=== PATIENT | female | born 1960 | race Caucasian/White ===

== ENCOUNTER → 2017-04-24 | Outpatient (CLI) | payer BC, OTHER ==
[~2017-04-24] MED LIST: ALBU8.5H4 IH; ALPR0.2550 PO; ASP81TEC PO; HCT25T PO; LEVA1.2511 IH; METO-272 PO; METO50TA2 PO; MOME13HF2 IH; MTF500T PO; OXYC-197 PO; RT-ALBUINH IH
--- NOTE | 2017-04-25 18:01 | Diagnostic Imaging Report ---
Bilateral screening mammogram 2D views with tomosynthesis The current study was also evaluated with a Computer Aided Detection (CAD) system. INDICATION: Screening. No current complaints stated on the questionnaire. COMPARISON: 04/05/2016. FINDINGS: The breasts are composed of scattered fibroglandular densities. Scattered benign-appearing calcifications are noted. Allowing for technique and positional differences, no suspicious change is seen. IMPRESSION: No significant change. ACR BI-RADS Category 2: Benign findings. Result letter will be mailed to the patient. Note: At least 10% of breast cancer is not imaged by mammography. Dictated by: Dictated on workstation # [id number]
== END ==
LOC: RAD 10:46
PROVIDERS: ATTEND Obstetrics & Gynecology
DX: Z12.31 Encounter for screening mammogram for malignant neoplasm of breast (principal)
CPT/HCPCS: 77067

== ENCOUNTER → 2018-05-16 | Outpatient (CLI) | payer BC ==
[~2018-05-16] MED LIST changes: +METO50TA15 PO; -METO50TA2 PO
--- NOTE | 2018-05-16 13:36 | Diagnostic Imaging Report ---
INDICATION: Routine screening. COMPARISON: Comparison is made with prior mammogram from 04/24/2017 and 04/05/2016. TECHNIQUE: 2D and 3D bilateral screening mammography was performed with computer-aided detection (CAD) system. FINDINGS: Scattered fibroglandular densities are identified bilaterally. There is a cluster of microcalcifications in the upper and outer aspect of the left breast posterior depth, similar in appearance when compared with examination one year earlier. No associated soft tissue mass is seen. No spiculated lesion or architectural distortion is identified. The axillae are unremarkable. IMPRESSION: Stable bilateral mammograms. No mammographic features suspicious for malignancy are identified. ACR BI-RADS Category 2: Benign findings. Result letter will be mailed to the patient. Note: At least 10% of breast cancer is not imaged by mammography. Dictated by: Dictated on workstation # [id number]
== END ==
LOC: RAD 10:16
PROVIDERS: ATTEND Obstetrics & Gynecology
DX: Z12.31 Encounter for screening mammogram for malignant neoplasm of breast (principal)
CPT/HCPCS: 77067

== ENCOUNTER → 2022-08-24 | Outpatient (CLI) | payer BC ==
[~2022-08-24] MED LIST changes: +ALBU8.5H6 IH; -OXYC-197 PO; +OXYC1TAB87 PO; -RT-ALBUINH IH
--- NOTE | 2022-08-24 12:11 | Diagnostic Imaging Report ---
Indication: Routine screening. Comparison is made with prior mammograms 05/16/2018 and 04/24/2017. 2-D and 3-D bilateral screening mammography was performed with CAD. Scattered fibroglandular densities are identified bilaterally. The cluster of microcalcifications in the upper outer left breast appear to be slightly increased in number when compared with prior exams. Additional views are recommended. No mass is identified. Right breast is unremarkable. Axillae are unremarkable. IMPRESSION: BI-RADS 0 Slight increase in number of microcalcifications in the upper outer left breast. Further evaluation with additional views is recommended. ACR BI-RADS Category 0: Incomplete. (Needs additional imaging evaluation). Result letter will be mailed to the patient. Note: At least 10% of breast cancer is not imaged by mammography. Dictated by: Dictated on workstation # [id number]
== END ==
LOC: RAD 08:32
PROVIDERS: ATTEND Obstetrics & Gynecology
DX: Z12.31 Encounter for screening mammogram for malignant neoplasm of breast (principal); R92.0 Mammographic microcalcification found on diagnostic imaging of breast
CPT/HCPCS: 77063; 77067

== ENCOUNTER → 2022-09-04 | Outpatient (CLI) | payer BC ==
--- NOTE | 2022-09-05 09:12 | Diagnostic Imaging Report ---
EXAMINATION: 3D unilateral diagnostic left mammogram with CAD. INDICATION: Abnormal mammogram. FINDINGS: The screening mammogram performed on 08/24/2022 noted a slight increase in the number of microcalcifications in the upper-outer quadrant of the left breast. The compression/magnification views of this area show that the calcifications have indeed increased in number. They are also pleomorphic in appearance. This appearance is worrisome for malignancy. I would recommend that a stereotactic biopsy be performed to exclude malignancy. IMPRESSION: The microcalcifications in the upper-outer quadrant of the left breast are worrisome for malignancy. A stereotactic biopsy would be recommended. ACR BI-RADS Category 4: Suspicious abnormality. Result letter will be mailed to the patient. Note: At least 10% of breast cancer is not imaged by mammography. Dictated by: Dictated on workstation # [id number]
== END ==
LOC: RAD 07:31
PROVIDERS: ATTEND Obstetrics & Gynecology
DX: R92.0 Mammographic microcalcification found on diagnostic imaging of breast (principal)
CPT/HCPCS: 77065; G0279